=== PATIENT | female | born 1985 ===

== ENCOUNTER 2018-08-24 15:51 | Emergency (ER) | payer OTHER ==
[2018-08-24 15:51] VITALS: BMI 28.3
[2018-08-24 15:59] VITALS: O2SAT 97
--- NOTE | 2018-08-24 16:56 | ED PDOC ---
HPI: Female Pain Time Seen by Provider: 08/24/18 16:42 Chief Complaint (Nursing): Female Genitourinary Chief Complaint (Provider): Female Genitourinary History Per: Patient History/Exam Limitations: no limitations Onset/Duration Of Symptoms: Days (x5) Current Symptoms Are (Timing): Still Present Additional Complaint(s): 32 year old female presents to ED with a complaint of burning sensation with frequency during urination for 5 days. She additionally reports experiencing lower back pain but denies nausea, vomiting, diarrhea, fever, or chills. PCP: [facility] Past Medical History Reviewed: Historical Data, Nursing Documentation, Vital Signs Vital Signs: Last Vital Signs Temp 98.2 F 08/24/18 15:58 Pulse 104 H 08/24/18 15:58 Resp 18 08/24/18 15:58 BP 110/72 08/24/18 15:58 Pulse Ox 97 08/24/18 15:58 - Medical History PMH: No Chronic Diseases - Surgical History Surgical History: No Surg Hx - Family History Family History: States: Unknown Family Hx - Home Medications Home Medications: Ambulatory Orders Medication Instructions Recorded Ferrous Sulfate [Feosol] 325 mg PO BID #60 tab 07/24/15 Ibuprofen [Motrin Tab] 600 mg PO Q6 PRN #30 tab 07/24/15 Sennosides A and B [Senokot Tab] 17.2 mg PO HS #30 tab 07/24/15 Cyclobenzaprine [Cyclobenzaprine 10 mg PO BID #14 tab 08/25/15 HCl] Ibuprofen [Motrin] 400 mg PO Q6 #30 tab 08/25/15 Nitrofurantoin Macrocrystals 100 mg PO BID #14 cap 08/24/18 [Macrobid] Phenazopyridine HCl [Pyridium] 100 mg PO TID #6 tablet 08/24/18 - Allergies Allergies/Adverse Reactions: Allergies Allergy/AdvReac Type Severity Reaction Status Date / Time No Known Allergies Allergy Verified 08/24/18 15:59 Review of Systems ROS Statement: Except As Marked, All Systems Reviewed And Found Negative Constitutional: Negative for: Fever, Chills Gastrointestinal: Positive for: Abdominal Pain (lower). Negative for: Nausea, Vomiting, Diarrhea Genitourinary Female: Positive for: Dysuria (burning), Frequency. Negative for: Hematuria Musculoskeletal: Positive for: Back Pain (lower) Physical Exam - Reviewed Nursing Documentation Reviewed: Yes Vital Signs Reviewed: Yes - Physical Exam Appears: Positive for: Non-toxic, No Acute Distress Head Exam: Positive for: ATRAUMATIC, NORMAL INSPECTION, NORMOCEPHALIC Skin: Positive for: Normal Color Eye Exam: Positive for: Normal appearance ENT: Positive for: Normal ENT Inspection. Negative for: Pharyngeal Erythema Neck: Positive for: Normal Cardiovascular/Chest: Positive for: Regular Rate, Rhythm Respiratory: Positive for: Normal Breath Sounds. Negative for: Respiratory Distress Pulses-Radial (L): 3+/4+ Pulses-Radial (R): 3+/4+ Gastrointestinal/Abdominal: Positive for: Soft, Tenderness (suprapubic) Back: Positive for: Vertebral Tenderness (paralumbar). Negative for: L CVA Tenderness, R CVA Tenderness Extremity: Positive for: Normal ROM (upper/lower). Negative for: Calf Tenderness Neurologic/Psych: Positive for: Alert, Oriented - Laboratory Results Urine POC: Negative Urine dip results: Positive for: Leukocyte Esterase, Blood - ECG O2 Sat by Pulse Oximetry: 97 (RA) Pulse Ox Interpretation: Normal Medical Decision Making Medical Decision Making: Initial Impression: Dysuria; suprapubic pain Differential diagnosis: UTI r/o Initial Plan: * Urine /dipstick * Influenza AB Scribe Attestation: Documented by Chiquita Trevizo, acting as a scribe for Yvonne Mcghee MD. Provider Scribe Attestation: All medical record entries made by the Scribe were at my direction and personally dictated by me. I have reviewed the chart and agree that the record accurately reflects my personal performance of the history, physical exam, medical decision making, and the department course for this patient. I have also personally directed, reviewed, and agree with the discharge instructions and disposition. Disposition - Clinical Impression Clinical Impression: Urinary tract infection - Patient ED Disposition Is Patient to be Admitted: No Doctor Will See Patient In The: Office Counseled Patient/Family Regarding: Studies Performed, Diagnosis, Need For Followup - Disposition Referrals: [facility] [Outside] Disposition: Routine/Home Disposition Time: 17:26 Condition: GOOD Additional Instructions: CAITLIN OSEGUERA, thank you for letting us take care of you today. Your provider was Yvonne Mcghee MD and you were treated for ABD PAIN. The emergency medical care you received today was directed at your acute symptoms. If you were prescribed any medication, please fill it and take as directed. It may take several days for your symptoms to resolve. Return to the Emergency Department if your symptoms worsen, do not improve, or if you have any other problems. Please contact your doctor or call one of the physicians/clinics you have been referred to that are listed on the Patient Visit Information form that is included in your discharge packet. Bring any paperwork you were given at discharge with you along with any medications you are taking to your follow up visit. Our treatment cannot replace ongoing medical care by a primary care provider outside of the emergency department. Thank you for allowing the [facility] team to be part of your care today. If you had an X-Ray or CT scan: A Radiologist will review the ED reading if any change in treatment is needed we will contact you. If you had a blood, urine, or wound culture: It will take several days for the results, if any change in treatment is needed we will contact you. If you had an STI test: It will take 48 hours for the results. Please call after 1 week if you have not heard back. Prescriptions: Nitrofurantoin Macrocrystals [Macrobid] 100 mg PO BID #14 cap Phenazopyridine HCl [Pyridium] 100 mg PO TID #6 tablet Instructions: Urinary Tract Infections in Adults Print Language: BENGAL[place]
[2018-08-24 18:36] VITALS: BP 120/78; PULSE 78; RESP 19; TEMP 97.6
== END 2018-08-24 18:36 | disposition home or self-care (01) ==
LOC: H.ER 15:51
DX: N39.0 Urinary tract infection, site not specified (principal)